=== PATIENT | female | born 1950 | race Caucasian/White ===

== ENCOUNTER 2020-12-20 04:42 | Emergency (ER) | payer MEDICARE, OTHER ==
[~2020-12-20] VITALS: Ht 167.6 cm; Wt 90.7 kg
[2020-12-20 04:52] VITALS: BP 205/105
--- NOTE | 2020-12-20 04:56 | NUR ---
Patient presents with C/O high blood pressure. Patient states, "It has been high since yesterday afternoon anywhere from 200-220 and 100-113. I take metoprolol when I wake up and then 10 hours after that and it didn't help. The last time I took my blood pressure medication was last night at 2200." Patient denies pain, no signs of distress noted, alert. Vital signs stable. On arrival, BP 205/105. Currently it is 196/97. No other complaints at this time.
[2020-12-20] MEDS ORDERED: XANAX PO STA (05:26)
[2020-12-20] MEDS ORDERED: XANAX ONE (05:26)
[2020-12-20 05:34] VITALS: BP 166/86
--- NOTE | 2020-12-20 05:35 | ER.PDOC ---
General Chief Complaint: General Complaint Stated Complaint: HIGH BLOOD PRESSURE TRAVEL OUT OF US: No Time seen by MD: 05:28 Source: patient Exam Limitations: no limitations History of Present Illness Initial Comments Elevated blood pressure this morning. Patient has high blood pressure and takes metoprolol 100 mg twice a day. She also has anxiety and takes Xanax 1 mg 3 times a day as needed for anxiety. She ran out of her Xanax because she is visiting from [place]. She has been very stressed with her parents health. Her blood pressure has been up since last night and she is not able to sleep and had nothing to take for her anxiety. That prompted her to come to the emergency room. She denies headache, chest pain or shortness of breath. This is an ongoing problem for many years. Severity: moderate Associated Symptoms: denies symptoms Past Medical History Medical History: hypertension, other Surgical History: back, hysterectomy Family History Significant Family History: no pertinent family hx Social History Smoking: non-smoker Alcohol Use: none Drug Use: none Review of Systems Constitutional: no symptoms reported EENTM: no symptoms reported Respiratory: no symptoms reported Cardiovascular: see HPI Gastrointestinal: no symptoms reported Genitourinary: no symptoms reported All Other Systems: Reviewed and Negative Physical Exam General Appearance: No Apparent Distress, WD/WN, Anxious Neck: Non-Tender, Full Range of Motion, Supple, Normal Inspection Respiratory: chest non-tender, lungs clear, normal breath sounds, no respiratory distress, no accessory muscle use CVS: reg rate & rhythm, no murmur, no gallop, pulses nml, nml capillary refill Gastrointestinal: Normal Bowel Sounds, No Organomegaly, No Pulsatile Mass, Non Tender Back: Normal Inspection, No CVA Tenderness Extremities: Normal Range of Motion 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/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: 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 II-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 NML as Tested, No Motor/Sensory Deficits, Alert, Normal Mood/Affect, Oriented x 3 Skin: Normal Color Results/Orders Results/Orders Orders - HIEU HERNANDEZ MD Alprazolam (Xanax) (12/20/20 05:26) Alprazolam (Xanax) (12/20/20 05:26) Vital Signs Date Time Temp Pulse Resp B/P (MAP) Pulse Ox O2 Delivery O2 Flow Rate FiO2 12/20/20 04:52 98.4 63 18 205/105 (138) 98 Room Air 12/20/20 04:52 98.4 61 18 98 12/20/20 04:52 98.4 63 18 Administered Medications Medications (Trade) Dose Ordered Sig/Lucinda Route PRN Reason Start Time Stop Time Status Last Admin Dose Admin Alprazolam (Xanax) 1 mg STAT STAT PO 12/20/20 05:26 12/20/20 05:27 DC 12/20/20 05:27 1 MG Progress Progress Patient patient's current blood pressure is 166/86. She continues to remain asymptomatic and was given 1 mg of Xanax. ER DEPART Departure Time of Disposition: 05:34 Disposition: 01 HOME / SELF CARE / HOMELESS Impression: Primary Impression: Elevated blood pressure reading Additional Impression: Anxiety Condition: Improved Referrals: PCP,UNKNOWN (PCP) PRIMARY CARE PROVIDER Additional Instructions: Continue home medications Follow-up with your PCP in 1 to 2 days Return to ED if worsening or concerns Duration or Time Spent with Pa: 10 min Problem Qualifiers HIEU HERNANDEZ MD Dec 20, 2020 05:35
== END 2020-12-20 05:40 | disposition home or self-care (01) ==
LOC: ER 04:42
DX: F41.9 Anxiety disorder, unspecified (principal); I10 Essential (primary) hypertension; Z79.899 Other long term (current) drug therapy; Z90.710 Acquired absence of both cervix and uterus
CPT/HCPCS: 99283